=== PATIENT | female | born 1965 | race Caucasian/White ===

== ENCOUNTER → 2018-11-25 | Outpatient (CLI) | payer BC ==
[2018-11-25 08:27] LABS: ABSOLUTE EOSINOPHILS # (AUTO) 0.2 10^3/uL (0.0-0.6); ABSOLUTE LYMPHOCYTES (AUTO) 1.3 10^3/uL (0.5-4.7); ABSOLUTE MONOCYTES (AUTO) 0.3 10^3/uL (0.1-1.4); ABSOLUTE NEUT (AUTO) 2.6 10^3/uL (1.7-8.2); BASOPHILS % (AUTO) 0.6 % (0-2); EOSINOPHILS % (AUTO) 5.4 % (0-6); HEMATOCRIT 38.7 % (36.0-47.0); HEMOGLOBIN 13.4 g/dL (12.0-15.5); MEAN CORPUSCULAR HEMOGLOBIN 31.6 pg (27.0-33.4); MEAN CORPUSCULAR HGB CONC 34.6 g/dL (32.0-36.0); MEAN CORPUSCULAR VOLUME 91 fl (80-97); MONOCYTES % (AUTO) 7.8 % (3-13); PLATELET COUNT 219 10^3/uL (150-450); RED BLOOD COUNT 4.24 10^6/uL (3.72-5.28); RED CELL DISTRIBUTION WIDTH 13.7 % (11.5-14.0); SEGMENTED NEUTROPHILS % (AUTO) 58.2 % (42-78); TOTAL CELLS COUNTED % (AUTO) 100 %; WHITE BLOOD COUNT 4.5 10^3/uL (4.0-10.5)
[2018-11-25 09:12] LABS: ALANINE AMINOTRANSFERASE 32 U/L (9-52); ALBUMIN 4.2 g/dL (3.5-5.0); ALKALINE PHOSPHATASE 125 U/L (38-126); ANION GAP 8 (5-19); ASPARTATE AMINO TRANSFERASE 22 U/L (14-36); BILIRUBIN,DIRECT 0.4 mg/dL (0.0-0.4); BILIRUBIN,TOTAL 0.6 mg/dL (0.2-1.3); BLOOD UREA NITROGEN 15 mg/dL (7-20); CALCIUM 9.6 mg/dL (8.4-10.2); CARBON DIOXIDE 30 mmol/L (22-30); CHLORIDE 103 mmol/L (98-107); CHOLESTEROL 246.09 mg/dL (0-200); GLUCOSE 97 mg/dL (75-110); POTASSIUM 4.4 mmol/L (3.6-5.0); SODIUM 140.9 mmol/L (137-145); TOTAL PROTEIN 7.5 g/dL (6.3-8.2); TRIGLYCERIDES 215 mg/dL (<150)
[2018-11-25 09:23] LABS: DIRECT LDL 142 mg/dL (<100)
[2018-11-26 07:44] LABS: HEPATITIS C VIRUS AB <0.1 s/co ratio (0.0-0.9)
== END ==
LOC: OD 07:13
PROVIDERS: ATTEND Family Medicine
DX: E06.3 Autoimmune thyroiditis (principal); Z13.1 Encounter for screening for diabetes mellitus; Z86.2 Personal history of diseases of the blood and blood-forming organs and certain disorders involving the immune mechanism; Z13.220 Encounter for screening for lipoid disorders; Z11.59 Encounter for screening for other viral diseases
CPT/HCPCS: 36415; 80053; 80061; 84443; 85025; 86803; 86804

== ENCOUNTER → 2019-02-04 | Outpatient (CLI) | payer BC | LOC: OD 07:11 | PROVIDERS: ATTEND Family Medicine | DX: E06.3 Autoimmune thyroiditis (principal) | CPT/HCPCS: 36415; 84443 ==

== ENCOUNTER → 2019-03-12 | Outpatient (CLI) | payer BC ==
[2019-03-12 08:20] LABS: HEMATOCRIT 37.9 % (36.0-47.0); HEMOGLOBIN 12.9 g/dL (12.0-15.5); MEAN CORPUSCULAR HGB CONC 34.1 g/dL (32.0-36.0); MEAN CORPUSCULAR VOLUME 91 fl (80-97); PLATELET COUNT 225 10^3/uL (150-450); RED BLOOD COUNT 4.16 10^6/uL (3.72-5.28); RED CELL DISTRIBUTION WIDTH 14.6 % (11.5-14.0); WHITE BLOOD COUNT 4.9 10^3/uL (4.0-10.5)
[2019-03-12 08:45] LABS: ALANINE AMINOTRANSFERASE 16 U/L (9-52); ALBUMIN 4.2 g/dL (3.5-5.0); ALKALINE PHOSPHATASE 113 U/L (38-126); AMYLASE 57 U/L (30-110); ANION GAP 7 (5-19); ASPARTATE AMINO TRANSFERASE 18 U/L (14-36); BILIRUBIN,DIRECT 0.3 mg/dL (0.0-0.4); BILIRUBIN,TOTAL 0.6 mg/dL (0.2-1.3); BLOOD UREA NITROGEN 17 mg/dL (7-20); CALCIUM 9.3 mg/dL (8.4-10.2); CARBON DIOXIDE 28 mmol/L (22-30); CHLORIDE 105 mmol/L (98-107); GLUCOSE 94 mg/dL (75-110); LIPASE 76.7 U/L (23-300); SODIUM 139.8 mmol/L (137-145)
== END ==
LOC: OD 07:26
PROVIDERS: ATTEND Internal Medicine Gastroenterology
DX: R10.11 Right upper quadrant pain (principal)
CPT/HCPCS: 36415; 80048; 80076; 82150; 83690; 85027

== ENCOUNTER 2019-03-16 15:20 | Day surgery (SDC) | payer BC ==
[2019-03-16] MEDS ORDERED: DIPHENHYDRAMINE HCL 50 MG/ML VIAL ONE (15:49)
[2019-03-16] MEDS ORDERED: FENTANYL CITRATE INJ/PF 100 MCG/2 ML AMPUL ONE (15:50)
[2019-03-16] MEDS ORDERED: MIDAZOLAM 2 MG/2 ML INJ ONE (15:50)
[2019-03-16] MEDS ORDERED: ONDANSETRON HCL INJ/PF 4 MG/2 ML SDV ONE (15:50)
[2019-03-16] MEDS ORDERED: EPINEPHRINE INJ 1 MG/10 ML DISP.SYRIN ONE (15:51)
[2019-03-16] MEDS ORDERED: NALOXONE HCL INJ/PF 0.4 MG/1 ML SDV ONE (15:51)
[2019-03-16] MEDS ORDERED: FLUMAZENIL INJ 0.5 MG/5 ML VIAL ONE (15:51)
[2019-03-16] MEDS ORDERED: GLUCAGON,HUMAN RECOMB 1 MG INJ ONE (15:51)
[2019-03-16] MEDS ORDERED: FENTANYL CITRATE INJ/PF 100 MCG/2 ML AMPUL IV ONE ×2 (16:45→16:50)
[2019-03-16] MEDS ORDERED: MIDAZOLAM 2 MG/2 ML INJ IV ONE ×4 (16:46→16:53)
[2019-03-16] MEDS ORDERED: ONDANSETRON HCL INJ/PF 4 MG/2 ML SDV IV ONE (16:55)
[2019-03-16 18:03] VITALS: BP 138/66
--- NOTE | 2019-03-16 20:05 | OPERATIVE REPORT E ---
Operative Report NAME: SUZANNA ZAVALA : 1965 AGE: 53Y DATE OF SURGERY: 03/16/2019 ROOM: PREOPERATIVE DIAGNOSIS: COLON CANCER SCREENING AND ABDOMINAL PAIN. POSTOPERATIVE DIAGNOSIS: INTERNAL HEMORRHOIDS. OPERATION: Colonoscopy. SURGEON: VERENICE ROB M.D. ANESTHESIA: Versed 3 mg, fentanyl 100 mcg. TISSUE REMOVED OR ALTERED: None. PROCEDURE: After informed consent was obtained from the patient, conscious sedation was achieved. Colonoscope was inserted into the rectum, advanced to the cecum. The appendiceal orifice and terminal ileum were both identified. The cecal mucosa was normal. The ascending, transverse, descending, and sigmoid colon mucosa were normal. Rectum was normal except for internal hemorrhoids. She tolerated the procedure well. PLAN: 1. High fiber diet. 2. Repeat colonoscopy in 10 years. DICTATING PHYSICIAN: VERENICE ROB M.D. [id number] PHY#: [id number] ID: [id number] JOB#: [id number] ACCT: [id number] cc:DIONTE ENG M.D. VERENICE ROB M.D. >
== END 2019-03-16 18:03 | disposition home or self-care (01) ==
LOC: END 15:20
PROVIDERS: ATTEND Internal Medicine Gastroenterology
DX: K64.8 Other hemorrhoids (principal); R10.811 Right upper quadrant abdominal tenderness; R10.11 Right upper quadrant pain; E03.9 Hypothyroidism, unspecified
CPT/HCPCS: J2250; J3010; J2405; J0171; J1200; J1610; J2310; J3490

== ENCOUNTER 2019-03-23 14:58 | Day surgery (SDC) | payer BC ==
[2019-03-23] MEDS ORDERED: DIPHENHYDRAMINE HCL 50 MG/ML VIAL ONE (16:07)
[2019-03-23] MEDS ORDERED: ONDANSETRON HCL INJ/PF 4 MG/2 ML SDV ONE (16:07)
[2019-03-23] MEDS ORDERED: FLUMAZENIL INJ 0.5 MG/5 ML VIAL ONE (16:08)
[2019-03-23] MEDS ORDERED: FENTANYL CITRATE INJ/PF 100 MCG/2 ML AMPUL ONE (16:08)
[2019-03-23] MEDS ORDERED: NALOXONE HCL INJ/PF 0.4 MG/1 ML SDV ONE (16:08)
[2019-03-23] MEDS ORDERED: MIDAZOLAM 2 MG/2 ML INJ ONE (16:08)
[2019-03-23] MEDS ORDERED: EPINEPHRINE INJ 1 MG/10 ML DISP.SYRIN ONE (16:09)
[2019-03-23] MEDS ORDERED: GLUCAGON,HUMAN RECOMB 1 MG INJ ONE (16:09)
[2019-03-23] MEDS ORDERED: MIDAZOLAM 2 MG/2 ML INJ IV ONE ×2 (16:26→16:30)
[2019-03-23] MEDS ORDERED: FENTANYL CITRATE INJ/PF 100 MCG/2 ML AMPUL INJ ONE (16:27)
--- NOTE | 2019-03-23 16:38 | Operative Report ---
Operative Report DATE OF SURGERY: 03/23/19 Operative Report: Pre-op diagnosis: Right upper quadrant pain Post-op diagnosis: Grade A esophagitis Surgery: Esophagogastroduodenoscopy with biopsy Medications: Versed 3mg Fentanyl 100mcg IV push Tissue removed: Antral and gastric body biopsy for pathology Procedure: After informed consent obtained from patient, the throat was sprayed with Hurricane and conscious sedation was achieved. The upper endoscope was inserted into the esophagus under direct vision and advanced into the stomach. The duodenum was entered and examined to the second part. Endoscope was then slowly pulled out of the patient as the mucosa was examined into details. Patient tolerated procedure well. Findings Esophagus: Single erosion less than 5 mm Z-line at: 35 cm Antrum: Normal Body: Normal Fundus: Normal Duodenum first part: Normal Duodenum second part: Normal Plan: Await pathology. Omeprazole 20 mg daily OPERATION: .
[2019-03-23 17:47] VITALS: BP 157/77
== END 2019-03-23 17:31 | disposition home or self-care (01) ==
LOC: END 14:58
PROVIDERS: ATTEND Internal Medicine Gastroenterology
DX: K29.50 Unspecified chronic gastritis without bleeding (principal); K20.9 Esophagitis, unspecified; E03.9 Hypothyroidism, unspecified; Z79.899 Other long term (current) drug therapy
CPT/HCPCS: 43239; 88342 ×2; 88305 ×2; J2250; J3010; J0171; J1200; J1610; J2310; J2405; J3490

== ENCOUNTER 2019-06-14 20:04 | Emergency (ER) | payer BC ==
--- NOTE | 2019-06-14 20:17 | ER Document Report ---
ED Medical Screen (RME) - General Chief Complaint: Abdominal Pain Stated Complaint: ABDOMINAL PAIN Time Seen by Provider: 06/14/19 20:14 Mode of Arrival: Ambulatory Information source: Patient Notes: 53-year-old female presents to ED for complaint of pain in her right upper quadrant through to her back. She states she had her gallbladder removed in 2004 and has had pain ever since. She states she came in today because the pain was much worse and she is having nausea and vomiting. She states she has had acute pancreatitis in the past around 20 1220 1213. She states she drinks no more than once a month. Brian make some blood in urine I have greeted and performed a rapid initial assessment of this patient. A comprehensive ED assessment and evaluation of the patient, analysis of test results and completion of medical decision making process will be conducted by an additional ED providers. TRAVEL OUTSIDE OF THE [place] IN LAST 30 DAYS: No - Related Data Allergies/Adverse Reactions: adhesive tape Allergy (Intermediate, Verified 06/14/19 20:11) Blisters Past Medical History - Past Medical History Cardiac Medical History: Denies: Hx Coronary Artery Disease, Hx Heart Attack, Hx Hypertension Pulmonary Medical History: Denies: Hx Asthma, Hx Bronchitis, Hx COPD, Hx Pneumonia Neurological Medical History: Denies: Hx Cerebrovascular Accident, Hx Seizures Musculoskeltal Medical History: Denies Hx Arthritis Past Surgical History: Denies: Hx Hysterectomy - Immunizations Hx Diphtheria, Pertussis, Tetanus Vaccination: Yes Physical Exam - Vital signs Vitals: Temp Pulse Resp BP Pulse Ox 98.7 F 95 17 176/84 H 96 06/14/19 20:08 06/14/19 20:08 06/14/19 20:08 06/14/19 20:08 06/14/19 20:08 Course - Vital Signs Vital signs: Temp Pulse Resp BP Pulse Ox 98.7 F 95 17 176/84 H 96 06/14/19 20:08 06/14/19 20:08 06/14/19 20:08 06/14/19 20:08 06/14/19 20:08
[2019-06-14] MEDS ORDERED: ONDANSETRON 4 MG TAB.RAPDIS PO ONE (20:20)
[2019-06-14 20:59] LABS: ABSOLUTE BASOPHILS # (AUTO) 0.1 10^3/uL (0.0-0.2); ABSOLUTE EOSINOPHILS # (AUTO) 0.4 10^3/uL (0.0-0.6); ABSOLUTE LYMPHOCYTES (AUTO) 1.8 10^3/uL (0.5-4.7); ABSOLUTE MONOCYTES (AUTO) 0.9 10^3/uL (0.1-1.4); ABSOLUTE NEUT (AUTO) 9.6 10^3/uL (1.7-8.2); BASOPHILS % (AUTO) 0.6 % (0-2); EOSINOPHILS % (AUTO) 2.9 % (0-6); HEMATOCRIT 39.1 % (36.0-47.0); HEMOGLOBIN 13.3 g/dL (12.0-15.5); LYMPHOCYTES % (AUTO) 13.8 % (13-45); MEAN CORPUSCULAR HEMOGLOBIN 30.8 pg (27.0-33.4); MEAN CORPUSCULAR VOLUME 91 fl (80-97); MONOCYTES % (AUTO) 7.2 % (3-13); PLATELET COUNT 279 10^3/uL (150-450); RED BLOOD COUNT 4.31 10^6/uL (3.72-5.28); RED CELL DISTRIBUTION WIDTH 13.8 % (11.5-14.0); SEGMENTED NEUTROPHILS % (AUTO) 75.5 % (42-78); TOTAL CELLS COUNTED % (AUTO) 100 %; WHITE BLOOD COUNT 12.7 10^3/uL (4.0-10.5)
--- NOTE | 2019-06-14 21:15 | RADIOLOGY REPORT (SQ) ---
EXAM DESCRIPTION: XR ABDOMEN SUPINE AND ERECT WITH CHEST (ABD ACUTE SERIES) COMPLETED DATE/TME: 06/14/2019 20:19 CLINICAL HISTORY: 53 years, Female, abdominal pain hard stools this am COMPARISON: None. NUMBER OF VIEWS: Three TECHNIQUE: Three frontal radiographs were obtained LIMITATIONS: None. FINDINGS: Cardiac and mediastinal contours are normal. Lungs are clear. No pleural effusion or pneumothorax. Cholecystectomy clips project over the right upper quadrant. Gas and a moderate amount of stool are noted throughout the large bowel. Scattered nondilated loops of small bowel are visible. No suspicious soft tissue calcifications are appreciated. There are no suspicious osseous anomalies. No subdiaphragmatic free air. IMPRESSION: No acute abnormality within the chest. Nonobstructive bowel gas pattern. copyright 2010 [employer]- All Rights Reserved
[2019-06-14 21:16] LABS: ALBUMIN 4.4 g/dL (3.5-5.0); ALKALINE PHOSPHATASE 133 U/L (38-126); ANION GAP 10 (5-19); ASPARTATE AMINO TRANSFERASE 17 U/L (14-36); BILIRUBIN,DIRECT 0.1 mg/dL (0.0-0.4); BILIRUBIN,TOTAL 0.6 mg/dL (0.2-1.3); BLOOD UREA NITROGEN 12 mg/dL (7-20); CALCIUM 9.5 mg/dL (8.4-10.2); CARBON DIOXIDE 26 mmol/L (22-30); CHLORIDE 101 mmol/L (98-107); CREATINE KINASE 68 U/L (30-135); GLUCOSE 119 mg/dL (75-110); POTASSIUM 4.3 mmol/L (3.6-5.0); TOTAL PROTEIN 7.8 g/dL (6.3-8.2)
[2019-06-14 21:32] LABS: CREATINE KINASE MB 0.55 ng/mL (<4.55); TROPONIN I < 0.012 ng/mL
[2019-06-14 21:34] LABS: APPEARANCE,URINE CLEAR; BILIRUBIN,URINE NEGATIVE (NEGATIVE); COLOR,URINE YELLOW; GLUCOSE, URINE NEGATIVE (NEGATIVE); KETONES,URINE NEGATIVE (NEGATIVE); PROTEIN,URINE NEGATIVE (NEGATIVE); URINE SPECIFIC GRAVITY 1.017; UROBILINOGEN,URINE NEGATIVE mg/dL (<2.0)
[2019-06-14] MEDS ORDERED: DIPHENHYDRAMINE HCL 50 MG/ML VIAL IV ONE (21:34)
[2019-06-14] MEDS ORDERED: PROCHLORPERAZINE EDISYLATE INJ 10 MG/2 ML VIAL IV ONE (21:34)
--- NOTE | 2019-06-14 21:38 | ER Document Report ---
ED General - General Stated Complaint: ABDOMINAL PAIN Time Seen by Provider: 06/14/19 20:14 Mode of Arrival: Ambulatory TRAVEL OUTSIDE OF THE [place] IN LAST 30 DAYS: No - HPI Notes: 53-year-old female who presents with a history of chronic right upper quadrant pain presents with day or more of increasingly severe right upper quadrant pain. Stereotypical for multiple prior presentations over the last several years. Seems to wax and wane over months. Had extensive work-up in the past including reimaging, labs all of which been unremarkable. No fever, chills or sweats. Nausea but no vomiting. Moderate intensity severe at times, consistent with prior episodes. Most recently had an upper and lower GI which were unremarkable. No other modifying factors, no other associated symptoms, no other provocative or palliative factors. - Related Data Allergies/Adverse Reactions: adhesive tape Allergy (Intermediate, Verified 06/14/19 20:11) Blisters Past Medical History - General Information source: Patient - Social History Smoking Status: Never Smoker Chew tobacco use (# tins/day): No Frequency of alcohol use: Occasional Drug Abuse: None Family History: Reviewed & Not Pertinent Patient has suicidal ideation: No Patient has homicidal ideation: No - Medical History Notes: Includes prior cholecystectomy and intermittent chronic right upper quadrant pain - Past Medical History Cardiac Medical History: Denies: Hx Coronary Artery Disease, Hx Heart Attack, Hx Hypertension Pulmonary Medical History: Denies: Hx Asthma, Hx Bronchitis, Hx COPD, Hx Pneumonia Neurological Medical History: Denies: Hx Cerebrovascular Accident, Hx Seizures Musculoskeletal Medical History: Denies Hx Arthritis Past Surgical History: Denies: Hx Hysterectomy - Immunizations Hx Diphtheria, Pertussis, Tetanus Vaccination: Yes Review of Systems - Review of Systems Notes: Review of systems as in the history of present illness, otherwise negative x 10 systems. Physical Exam - Vital signs Vitals: Temp Pulse Resp BP Pulse Ox 98.7 F 95 17 176/84 H 96 06/14/19 20:08 06/14/19 20:08 06/14/19 20:08 06/14/19 20:08 06/14/19 20:08 - Notes Notes: General: Well developed . HEENT: Normocephalic, atraumatic. Pupils equal round reactive to light. No JVD. Chest: No trauma. Respiratory: Good air exchange, normal excursion. Cardiac: Regular rhythm. No murmurs or gallops. Abdomen: Soft, no guarding rigidity or rebound. Mild right upper quadrant tenderness. Back: No asymmetry or gross abnormality. Motor: Grossly normal power and tone. Neurologic: Alert, nonfocal. Cranial nerves II-12 are intact. Sensation intact. Vascular: Well perfused. Normal peripheral pulses. Skin: No petechiae or purpura. Course - Re-evaluation Re-evalutation: 06/14/19 21:37 Note patient seen by provider in triage prior to my evaluation, multiple labs and imaging studies were ordered and partially available at the time of evaluation. 53-year-old female with acute on chronic cyclical chronic pain. Relatively benign exam no high risk features. Suspect this is a an exacerbation of her underlying chronic recurrent pain. Available labs show minimal leukocytosis, normal LFTs and lipase. Acute abdominal series grossly unremarkable. This point we will treat with IV prochlorperazine and diphenhydramine, fluids, she will exams and reassess. 06/14/19 22:10 Patient has had marked improvement and has a benign examination after administration of Compazine and diphenhydramine. Will discharge home with prescription for Compazine, close outpatient follow-up. - Vital Signs Vital signs: Temp Pulse Resp BP Pulse Ox 98.7 F 95 17 176/84 H 96 06/14/19 20:08 06/14/19 20:08 06/14/19 20:08 06/14/19 20:08 06/14/19 20:08 - Laboratory Result Diagrams: 06/14/19 18:35 06/14/19 18:35 Laboratory results interpreted by me: 06/14/19 06/14/19 06/14/19 18:35 18:35 18:35 WBC 12.7 H Absolute Neuts (auto) 9.6 H Sodium 136.9 L Glucose 119 H Alkaline Phosphatase 133 H Leukocyte Esterase Rfl TRACE H Discharge - Discharge Clinical Impression: Abdominal pain Qualifiers: Abdominal location: unspecified location Qualified Code(s): R10.9 - Unspecified abdominal pain Condition: Stable Disposition: HOME, SELF-CARE Instructions: Abdominal Pain ([facility]) Additional Instructions: See your regular doctor over the next 24 to 48 hours Prescriptions: Prochlorperazine Maleate [Compazine 10 mg Tablet] 10 mg PO ASDIR PRN #10 tablet PRN Reason:
[2019-06-14 22:34] VITALS: BP 143/69
== END 2019-06-14 22:40 | disposition home or self-care (01) ==
LOC: ER 20:04
DX: R10.11 Right upper quadrant pain (principal); G89.29 Other chronic pain; R10.811 Right upper quadrant abdominal tenderness; D72.829 Elevated white blood cell count, unspecified; Z90.49 Acquired absence of other specified parts of digestive tract; Z91.048 Other nonmedicinal substance allergy status
CPT/HCPCS: 36415; 87086; 82553; 82550; 83690; 85025; 80053; 81001; 84484; 74022; J1200; S0119; J0780; 96374; 96375; 99284

== ENCOUNTER → 2019-11-26 | Outpatient (CLI) | payer BC ==
--- NOTE | 2019-11-26 12:39 | RADIOLOGY REPORT (SQ) ---
EXAM DESCRIPTION: LUMBAR SPINE 2 VIEWS IMAGES COMPLETED DATE/TIME: 11/26/2019 12:28 pm REASON FOR STUDY: LEFT HIP PAIN;LOW BACK PAIN M54.5 LOW BACK PAIN M25.552 PAIN IN LEFT HIP COMPARISON: None. NUMBER OF VIEWS: Two views. TECHNIQUE: AP and lateral radiographic images acquired of the lumbar spine. LIMITATIONS: None. FINDINGS: MINERALIZATION: Normal. SEGMENTATION: 5 [id number] lumbar vertebral bodies. ALIGNMENT: Straightening of the normal lumbar lordosis. VERTEBRAE: Maintained height. No fracture or worrisome bone lesion. DISCS: Mild endplate change with relatively well-maintained disc spaces. POSTERIOR ELEMENTS: Pedicles and facets are intact. No pars defect or posterior arch defects. HARDWARE: None in the spine. PARASPINAL SOFT TISSUES: Normal. PELVIS: Intact as visualized. No fractures or worrisome bone lesions. SI joints intact. OTHER: No other significant finding. IMPRESSION: 1. No evidence of acute bony abnormality of the lumbar spine. 2. Minimal degenerative change. TECHNICAL DOCUMENTATION: JOB ID: [id number] 2010 [employer]- All Rights Reserved Reading location - IP/workstation name: [email or web address]
--- NOTE | 2019-11-26 12:41 | RADIOLOGY REPORT (SQ) ---
EXAM DESCRIPTION: HIP LEFT AP/LATERAL IMAGES COMPLETED DATE/TIME: 11/26/2019 12:28 pm REASON FOR STUDY: LEFT HIP PAIN;LOW BACK PAIN M54.5 LOW BACK PAIN M25.552 PAIN IN LEFT HIP COMPARISON: None. NUMBER OF VIEWS: Two views. TECHNIQUE: AP pelvis and additional frog-leg view of the left hip. LIMITATIONS: None. FINDINGS: MINERALIZATION: Normal. LEFT HIP: No fracture or dislocation. No worrisome bone lesions. RIGHT HIP: No fracture or dislocation. No worrisome bone lesions. PUBIS AND ISCHIUM: No fracture. PELVIS: No fracture. SACRUM: No fracture or dislocation. No worrisome bone lesions. LOWER LUMBAR SPINE: No fracture or dislocation. No worrisome bone lesions. No significant disc disea se. SOFT TISSUES: No findings. OTHER: No other significant finding. IMPRESSION: NEGATIVE STUDY OF THE LEFT HIP AND PELVIS. NO RADIOGRAPHIC EVIDENCE OF ACUTE INJURY. TECHNICAL DOCUMENTATION: JOB ID: [id number] 2010 [employer]- All Rights Reserved Reading location - IP/workstation name: [email or web address]
== END ==
LOC: OD 12:10
PROVIDERS: ATTEND Family Medicine
DX: M25.552 Pain in left hip (principal); M54.5 Low back pain
CPT/HCPCS: 72100

== ENCOUNTER → 2020-03-10 | Outpatient (CLI) | payer BC ==
[2020-03-10 08:32] LABS: ABSOLUTE EOSINOPHILS # (AUTO) 0.2 10^3/uL (0.0-0.6); ABSOLUTE LYMPHOCYTES (AUTO) 1.3 10^3/uL (0.5-4.7); ABSOLUTE MONOCYTES (AUTO) 0.4 10^3/uL (0.1-1.4); ABSOLUTE NEUT (AUTO) 2.4 10^3/uL (1.7-8.2); BASOPHILS % (AUTO) 0.7 % (0-2); EOSINOPHILS % (AUTO) 5.2 % (0-6); HEMATOCRIT 40.1 % (36.0-47.0); HEMOGLOBIN 13.4 g/dL (12.0-15.5); MEAN CORPUSCULAR HEMOGLOBIN 30.5 pg (27.0-33.4); MEAN CORPUSCULAR HGB CONC 33.5 g/dL (32.0-36.0); MEAN CORPUSCULAR VOLUME 91 fl (80-97); MONOCYTES % (AUTO) 9.4 % (3-13); PLATELET COUNT 210 10^3/uL (150-450); RED CELL DISTRIBUTION WIDTH 14.2 % (11.5-14.0); SEGMENTED NEUTROPHILS % (AUTO) 54.7 % (42-78); TOTAL CELLS COUNTED % (AUTO) 100 %; WHITE BLOOD COUNT 4.4 10^3/uL (4.0-10.5)
[2020-03-10 08:57] LABS: ALBUMIN 4.5 g/dL (3.5-5.0); ALKALINE PHOSPHATASE 101 U/L (38-126); ANION GAP 6 (5-19); ASPARTATE AMINO TRANSFERASE 26 U/L (14-36); BILIRUBIN,TOTAL 0.8 mg/dL (0.2-1.3); BLOOD UREA NITROGEN 17 mg/dL (7-20); CALCIUM 9.6 mg/dL (8.4-10.2); CARBON DIOXIDE 29 mmol/L (22-30); CHLORIDE 104 mmol/L (98-107); CHOLESTEROL 218.72 mg/dL (0-200); GLUCOSE 104 mg/dL (75-110); POTASSIUM 4.9 mmol/L (3.6-5.0); TOTAL PROTEIN 7.8 g/dL (6.3-8.2); TRIGLYCERIDES 180 mg/dL (<150)
[2020-03-10 09:08] LABS: DIRECT LDL 122 mg/dL (<100)
== END ==
LOC: OD 07:12
PROVIDERS: ATTEND Family Medicine
DX: E78.5 Hyperlipidemia, unspecified (principal); E06.3 Autoimmune thyroiditis; Z86.2 Personal history of diseases of the blood and blood-forming organs and certain disorders involving the immune mechanism
CPT/HCPCS: 36415; 80053; 80061; 84443; 85025

== ENCOUNTER 2020-04-13 12:04 | Emergency (ER) | payer OTHER, BC ==
[2020-04-13] MEDS ORDERED: DIPH/PERTUSS(ACELL)/TETANUS VAC/PF 0.5 ML SYR (>=10YO) IM ONE (13:27)
--- NOTE | 2020-04-13 13:28 | ER Document Report ---
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 Patient states that she had no loss of consciousness but her front teeth are loose her nose bled and she is having jaw pain. She has skinned up her nose. She also complains of right hand pain and left ankle pain. Patient is on no anticoagulation therapy. She had no loss of consciousness. She did not hit her head only the face hit the pavement. She denies any other medical problems. Patient is a well-nourished well-developed 54-year-old female who is in no apparent distress on physical exam but does appear very uncomfortable. Cardiac: Patient is a regular rate and rhythm no murmurs auscultated. Lungs: Bilateral breath sounds breath sounds increased clear to auscultation. HEENT. Examination of patient's face shows multiple abrasions on the nose and bridge of nose. There is some mild bleeding from the left nare. Swelling to the upper lip. Patient has some trismus noted. Tenderness to palpation across the mandible. Next Extremities: Examination patient's her concern is her right hand that shows mild tenderness along the fifth metacarpal and wrist area. There is no deformity noted. Patient has good cap refill in nailbeds of the finger. Lower extremities: Examination patient's left ankle shows mild swelling to the left lateral malleoli area. Tenderness to palpation in the same area and along the dorsum of the foot. I have greeted and performed a rapid initial assessment of this patient. A comprehensive ED assessment and evaluation of the patient, analysis of test results and completion of the medical decision making process will be conducted by additional ED providers. Dictation of this chart was performed using voice recognition software; therefore, there may be some unintended grammatical errors. TRAVEL OUTSIDE OF THE [place] IN LAST 30 DAYS: No - Related Data Allergies/Adverse Reactions: adhesive tape Allergy (Intermediate, Verified 06/14/19 20:11) Blisters Home Medications: Levothyroxine, Paroxetine, Atorvastatin, Omeprazole Past Medical History - Past Medical History Cardiac Medical History: Reports: Hx Hypertension Denies: Hx Coronary Artery Disease, Hx Heart Attack Pulmonary Medical History: Denies: Hx Asthma, Hx Bronchitis, Hx COPD, Hx Pneumonia Neurological Medical History: Denies: Hx Cerebrovascular Accident, Hx Seizures GI Medical History: Reports: Hx Gastroesophageal Reflux Disease Musculoskeltal Medical History: Denies Hx Arthritis Past Surgical History: Denies: Hx Hysterectomy - Immunizations Hx Diphtheria, Pertussis, Tetanus Vaccination: Yes Physical Exam - Vital signs Vitals: Temp Pulse Resp BP Pulse Ox 98.3 F 79 20 180/96 H 100 04/13/20 12:16 04/13/20 12:16 04/13/20 12:16 04/13/20 12:16 04/13/20 12:16 Course - Vital Signs Vital signs: Temp Pulse Resp BP Pulse Ox 98.3 F 79 20 180/96 H 100 04/13/20 12:16 04/13/20 12:16 04/13/20 12:16 04/13/20 12:16 04/13/20 12:16 Doctor's Discharge - Discharge Referrals: LAINEY ENG MD [Primary Care Provider] - Follow up as needed
--- NOTE | 2020-04-13 13:59 | RADIOLOGY REPORT (SQ) ---
EXAM DESCRIPTION: CT FACIAL AREA WITHOUT IMAGES COMPLETED DATE/TIME: 04/13/2020 1:49 pm REASON FOR STUDY: fall on face COMPARISON: None. TECHNIQUE: Noncontrasted images through the facial bones and orbits windowed for bone and soft tissu e. Additional coronal and sagittal reconstructed images reviewed. All images stored on PACS. All CT scanners at this facility use dose modulation, iterative reconstruction, and/or weight based d osing when appropriate to reduce radiation dose to as low as reasonably achievable (ALARA). [facility]: Dose Right [facility]: CareDose [facility]: Dose Right [facility]: Teradose 4D [facility]: [employer] RADIATION DOSE: mGy. LIMITATIONS: Jewelry artifact. FINDINGS: FACIAL BONES: No fracture or bone lesion. ORBITS: Intact. No fracture. Symmetric intact globes and retroorbital soft tissues. PARANASAL SINUSES: Clear. SOFT TISSUES: No mass or edema. INFERIOR BRAIN: Limited view. No acute findings. OTHER: No other significant finding. IMPRESSION: NO ACUTE FINDINGS. TECHNICAL DOCUMENTATION: JOB ID: [id number] Quality ID # [id number]: Final reports with documentation of one or more dose reduction techniques (e.g., Au tomated exposure control, adjustment of the mA and/or kV according to patient size, use of iterative reconstruction technique) 2010 [employer]- All Rights Reserved Reading location - IP/workstation name: [email or web address]
--- NOTE | 2020-04-13 14:06 | RADIOLOGY REPORT (SQ) ---
EXAM DESCRIPTION: ANKLE LEFT COMPLETE IMAGES COMPLETED DATE/TIME: 04/13/2020 1:56 pm REASON FOR STUDY: fall COMPARISON: None. NUMBER OF VIEWS: Three views. TECHNIQUE: AP, lateral, and oblique radiographic images acquired of the left ankle. LIMITATIONS: None. FINDINGS: MINERALIZATION: Normal. BONES: No acute fracture or dislocation. No worrisome bone lesions. Incidental note is made of calc aneal enthesopathy. JOINTS: No effusions. SOFT TISSUES: No soft tissue swelling. No foreign body. OTHER: No other significant finding. IMPRESSION: No evidence of acute osseous injury. TECHNICAL DOCUMENTATION: JOB ID: [id number] 2010 [employer]- All Rights Reserved Reading location - IP/workstation name: [email or web address]
--- NOTE | 2020-04-13 14:07 | RADIOLOGY REPORT (SQ) ---
EXAM DESCRIPTION: HAND RIGHT 3 VIEWS IMAGES COMPLETED DATE/TIME: 04/13/2020 1:56 pm REASON FOR STUDY: fall COMPARISON: None. EXAM PARAMETERS: NUMBER OF VIEWS: Three views. TECHNIQUE: AP, lateral and oblique radiographic images acquired of the right hand. LIMITATIONS: None. FINDINGS: MINERALIZATION: Normal. BONES: No acute fracture or dislocation. No worrisome bone lesions. JOINTS: No effusions. SOFT TISSUES: No soft tissue swelling. No foreign body. OTHER: No other significant finding. IMPRESSION: No evidence of acute osseous injury. TECHNICAL DOCUMENTATION: JOB ID: [id number] 2010 [employer]- All Rights Reserved Reading location - IP/workstation name: [email or web address]
--- NOTE | 2020-04-13 14:08 | RADIOLOGY REPORT (SQ) ---
EXAM DESCRIPTION: FOOT LEFT COMPLETE IMAGES COMPLETED DATE/TIME: 04/13/2020 1:56 pm REASON FOR STUDY: fall COMPARISON: None. NUMBER OF VIEWS: Three views. TECHNIQUE: AP, lateral and oblique radiographic images acquired of the left foot. LIMITATIONS: None. FINDINGS: MINERALIZATION: Normal. BONES: No acute fracture or dislocation. No worrisome bone lesions. Incidental note is made of calc aneal enthesopathy. JOINTS: No effusions. SOFT TISSUES: No soft tissue swelling. No foreign body. OTHER: No other significant finding. IMPRESSION: No evidence of acute osseous injury. TECHNICAL DOCUMENTATION: JOB ID: [id number] 2010 [employer]- All Rights Reserved Reading location - IP/workstation name: [email or web address]
[2020-04-13] MEDS ORDERED: OXYCODONE-ACETAMINOPHEN 5-325 MG TABLET PO ONE (15:31)
--- NOTE | 2020-04-13 15:58 | ER Document Report ---
ED General - General Chief Complaint: Facial Injury Stated Complaint: FALL/LIP/LEG PAIN Time Seen by Provider: 04/13/20 13:19 Primary Care Provider: LAINEY ENG MD [Primary Care Provider] - Follow up as needed Mode of Arrival: Ambulatory TRAVEL OUTSIDE OF THE [place] IN LAST 30 DAYS: No - HPI Notes: Patient is a 54-year-old female who presents to the emergency department for evaluation. She was walking outside, believes she must not of picked up her foot highly enough, twisted her ankle, fell to the ground and "face planted." She complains of pain in her nose and upper lip, her right wrist, her left ankle. She denies any neck or back pain. She did not lose consciousness. She has no nausea or vomiting, no visual changes. She is unsure of her last tetanus shot. - Related Data Allergies/Adverse Reactions: adhesive tape Allergy (Intermediate, Verified 06/14/19 20:11) Blisters Home Medications: Levothyroxine, Paroxetine, Atorvastatin, Omeprazole Past Medical History - General Information source: Patient - Social History Smoking Status: Never Smoker Family History: Reviewed & Not Pertinent - Past Medical History Cardiac Medical History: Reports: Hx Hypertension Denies: Hx Coronary Artery Disease, Hx Heart Attack Pulmonary Medical History: Denies: Hx Asthma, Hx Bronchitis, Hx COPD, Hx Pneumonia Neurological Medical History: Denies: Hx Cerebrovascular Accident, Hx Seizures GI Medical History: Reports: Hx Gastroesophageal Reflux Disease Musculoskeletal Medical History: Denies Hx Arthritis Past Surgical History: Reports: Hx Appendectomy, Hx Cholecystectomy, Other - Septoplasty. Denies: Hx Hysterectomy - Immunizations Hx Diphtheria, Pertussis, Tetanus Vaccination: Yes Review of Systems - Review of Systems Constitutional: No symptoms reported EENT: No symptoms reported Cardiovascular: No symptoms reported Respiratory: No symptoms reported Gastrointestinal: No symptoms reported Genitourinary: No symptoms reported Musculoskeletal: See HPI Skin: See HPI Neurological/Psychological: No symptoms reported Physical Exam - Vital signs Vitals: Temp Pulse Resp BP Pulse Ox 98.3 F 79 20 180/96 H 100 04/13/20 12:16 04/13/20 12:16 04/13/20 12:16 04/13/20 12:16 04/13/20 12:16 - Notes Notes: Vital signs reviewed, please refer to chart. Head is normocephalic. Pupils equal round, reactive to light. Nares are patent without septal hematoma. She does have an abrasion over the distal tip of the nose, with some tenderness. She has an abrasion on the skin above her upper lip. Superficial laceration noted to the inside of the upper lip. No facial bone tenderness, no orbital stepoff. Oral mucosa is moist. Mild trauma noted to left maxillary incisor. Uvula is midline. Examination of the spine yields no midline tenderness or step-off. No paraspinal musculature tenderness is appreciated. Heart is regular rate and rhythm. Lungs are clear to auscultation bilaterally. Chest wall excursion is equal, chest is nontender. Abdomen is soft, nontender, normoactive bowel sounds throughout. Extremities without cyanosis, clubbing. Posterior calves are nontender. Peripheral pulses are equal. Skin is warm and dry. Pat ient is awake, alert, oriented x3. No gross facial asymmetry. Moves all 4 extremity spontaneously. Examination of the right upper extremity yields no obvious deformity. Full range of motion at the shoulder elbow, thumb, fingers. Active range of motion of the wrist is limited. She has minimal tenderness to palpation over the distal ulna. No distal radius tenderness, no anatomical snuffbox tenderness. Radial pulse 2+, capillary fill is brisk. Examination of the left ankle yields a moderate amount of edema with ecchymosis over the lateral malleolus. She has no fibular head tenderness, no fifth metatarsal head tenderness. Neurovascularly intact distally. Course - Re-evaluation Re-evalutation: 04/13/20 16:05 Patient presents to the emergency department for evaluation after a fall. She had CT scan of the face, plain films as ordered through triage. She had her tetanus updated. I did treat her with here with Percocet. No clear fracture was identified. She is told she needs to follow-up with dentist in regards to her tooth, primary care in regards to other injuries. Otherwise ice, rest, elevation of her ankle. Keep wound clean. Return to the ED with worsening or new concerning symptoms of any sort. - Vital Signs Vital signs: Temp Pulse Resp BP Pulse Ox 98.3 F 79 20 180/96 H 100 04/13/20 12:16 04/13/20 12:16 04/13/20 12:16 04/13/20 12:16 04/13/20 12:16 Discharge - Discharge Clinical Impression: Left ankle sprain Qualifiers: Encounter type: initial encounter Involved ligament of ankle: unspecified ligament Qualified Code(s): S93.402A - Sprain of unspecified ligament of left ankle, initial encounter Contusion of nose Qualifiers: Encounter type: initial encounter Qualified Code(s): S00.33XA - Contusion of nose, initial encounter Facial abrasion Qualifiers: Encounter type: initial encounter Qualified Code(s): S00.81XA - Abrasion of other part of head, initial encounter Right wrist sprain Qualifiers: Encounter type: initial encounter Qualified Code(s): S63.501A - Unspecified sprain of right wrist, initial encounter Fall Qualifiers: Encounter type: initial encounter Qualified Code(s): W19.XXXA - Unspecified fall, initial encounter Dental injury Qualifiers: Encounter type: initial encounter Qualified Code(s): S09.93XA - Unspecified injury of face, initial encounter Condition: Stable Disposition: HOME, SELF-CARE Instructions: Abrasions of the Face ([facility]), Ice Packs ([facility]), Oral Narcotic Medication ([facility]), Sprained Ankle ([facility]) Additional Instructions: Keep wound clean with soap and water. Ice and elevate sprained ankle. Take medications as prescribed, preferably with food. Follow-up with your primary care provider next week. You also need to see your dentist for evaluation of your tooth. Return to the emergency department with worsening or new concerning symptoms of any sort. Prescriptions: Oxycodone HCl/Acetaminophen [Percocet 5-325 mg Tablet] 1 tab PO Q6HP PRN #12 tablet PRN Reason: Meloxicam [Mobic 7.5 Mg Tablet] 7.5 mg PO BID #20 tablet Forms: Return to Work Referrals: LAINEY ENG MD [Primary Care Provider] - Follow up as needed
[2020-04-13 16:26] VITALS: BP 156/92
== END 2020-04-13 16:19 | disposition home or self-care (01) ==
LOC: ER 12:04
DX: S93.402A Sprain of unspecified ligament of left ankle, initial encounter (principal); S09.93XA Unspecified injury of face, initial encounter; S00.33XA Contusion of nose, initial encounter; S00.81XA Abrasion of other part of head, initial encounter; S63.501A Unspecified sprain of right wrist, initial encounter; R51 Headache; J34.89 Other specified disorders of nose and nasal sinuses; M25.531 Pain in right wrist; M25.572 Pain in left ankle and joints of left foot; X50.1XXA Overexertion from prolonged static or awkward postures, initial encounter; Z88.8 Allergy status to other drugs, medicaments and biological substances; I10 Essential (primary) hypertension
CPT/HCPCS: 70486; 90471; 90715; 99284

== ENCOUNTER → 2020-06-06 | Outpatient (CLI) | payer BC ==
[2020-06-06 09:41] LABS: ANION GAP 10 (5-19); BLOOD UREA NITROGEN 15 mg/dL (7-20); CALCIUM 9.4 mg/dL (8.4-10.2); CARBON DIOXIDE 27 mmol/L (22-30); CHLORIDE 103 mmol/L (98-107); GLUCOSE 100 mg/dL (75-110); POTASSIUM 4.4 mmol/L (3.6-5.0)
== END ==
LOC: OD 07:45
PROVIDERS: ATTEND Family Medicine
DX: N28.9 Disorder of kidney and ureter, unspecified (principal)
CPT/HCPCS: 36415; 80048

== ENCOUNTER → 2020-08-16 | Outpatient (CLI) | payer BC ==
[~2020-08-16] MED LIST: COVID-19 VACCINE (PFIZER)/PF 30 MCG/0.3 ML VIAL IM ONE; EPINEPHRINE INJ/PF 1 MG/1 ML AMPULE IM PRN
== END ==
LOC: EMPHEALTH 07:30
PROVIDERS: ATTEND Internal Medicine
DX: Z23 Encounter for immunization (principal)
CPT/HCPCS: 91300

== ENCOUNTER → 2020-09-06 | Outpatient (CLI) | payer BC | LOC: EMPHEALTH 07:32 | PROVIDERS: ATTEND Internal Medicine | DX: Z23 Encounter for immunization (principal) | CPT/HCPCS: 91300 ==

== ENCOUNTER → 2020-09-14 | Outpatient (CLI) | payer BC ==
--- OUTSIDE RECORDS SUMMARY | 2020-09-14 07:26 | XMS REPORT ---
:1965 [facility] [address] [place] [address] Care Team Providers Name Role Phone CHANCE NEGRETE Primary Care Physician Unavailable KIMO LA Attending Clinician Unavailable JOJO MATUTE Attending Clinician Unavailable DONA ROMO Attending Clinician Unavailable GREGORIO NEGRETE Attending Clinician Unavailable TANI CARDENAS Attending Clinician Unavailable Fortino KUMAR Attending Clinician Unavailable Kashif SINCLAIR Attending Clinician Unavailable MORELIA Attending Clinician Unavailable Allergies, Adverse Reactions, Alerts Allergy Allergy Status Severity Reaction(s) Onset Inactive Treating C omstefano Name Type Date Date Clinician Morphine Propensity Inactive Pt just to adverse 5-04 don't reactions 00:00: like 00 Morphine ! ! Adhesive Propensity Inactive Low Rash (HUGGINS RGICAL Tape-Silic to adverse 5-03 TA PE) ones reactions 00:00: 00 Latex Propensity Inactive (LAT EX) to adverse 5-03 reactions 00:00: 00 Adhesive Propensity Active Low Rash 0 to adverse 6-25 reactions 00:00: 00 Adhesive Allergy to Active Tape substance Medications Ordered Filled Start Stop Current Ordering Indication Dosage Frequency Signature Comments Components Medication Medication Date Date Medication? Clinician (SIG) Name Name hydroCHLORO 2016-08 No TAKE ONE TAKE ONE thiazide 1-15 CAPSULE BY CAPSUL E (MICROZIDE) 00:00: MOUTH BY MOUT H 12.5 mg 00 EVERY DAY EVERY DA Y capsule scopolamine 2016-08 2018- No 1.5MG Place [address] 1 (TRANSDERM- 0-31 10-31 patch (1.5 pat ch SCOP) 1 mg 00:00: 23:59 mg total) (1.5 mg over 3 days 00 :00 on the total) on skin every the skin third day. every third day. HYDROmorpho No .5MG Hydromorph ne (PF) 12-25 one 1 (DILAUDID) 23:03: Mg/Ml injection 17 Injection 0.5 mg Syringe omeprazole 2016- No 20MG Take 1 Take 1 (PRILOSEC) 12-25- capsule capsule 20 MG 00:00: 23:59 (20 mg (20 mg capsule 00 :00 total) by total) b y mouth mouth daily. daily. omeprazole 2016- No 20MG Take 1 Take 1 (PRILOSEC) 12-25 capsule capsule 20 MG 00:00: 23:59 (20 mg (20 mg capsule 00 :00 total) by total) b y mouth mouth daily. daily. omeprazole 2016- No 20MG Take 1 Take 1 (PRILOSEC) 12-25 capsule capsule 20 MG 00:00: 23:59 (20 mg (20 mg capsule 00 :00 total) by total) b y mouth mouth daily. daily. omeprazole No 20MG Take 1 Take 1 (PRILOSEC) 12-25 capsule capsule 20 MG 00:00: 23:59 (20 mg (20 mg capsule 00 :00 total) by total) b y mouth mouth daily. daily. diclofenac 2016- No 75mg Take 75 mg Spenser e 75 (VOLTAREN) 2-17 02-17 by mouth mg by 75 MG EC 11:13: 00:00 Two (2) mouth Tw o tablet 46 :00 times a (2) times day. a day. ESTRADIOL No Place on Place on (ESTROGEL 2-17 the skin. the sk in. TD) 10:50: 08 multivitami 2016-0 No 1{capsu Take 1 Take 1 n capsule 2-17 le} capsule by capsu le 10:50: mouth by mouth 08 daily. daily. ESTRADIOL [address] on (ESTROGEL 2-17 the skin. the sk in. TD) 10:50: 08 multivitami 2016-0 No 1{capsu Take 1 Take 1 n capsule 2-17 le} capsule by capsu le 10:50: mouth by mouth 08 daily. daily. ESTRADIOL [address] on (ESTROGEL 2-17 the skin. the sk in. TD) 10:50: 08 multivitami 2017-0 No 1{capsu Take 1 Take 1 n capsule 2-17 le} capsule by capsu le 10:50: mouth by mouth 08 daily. daily. ESTRADIOL 2017-[address] on (ESTROGEL 2-17 the skin. the sk in. TD) 10:50: 08 multivitami 2017-0 No 1{capsu Take 1 Take 1 n capsule 2-17 le} capsule by capsu le 10:50: mouth by mouth 08 daily. daily. ESTRADIOL 2017-[address] on (ESTROGEL 2-17 the skin. the sk in. TD) 10:50: 08 hydroCHLORO 2017-0 2018- No 12.5MG Take 1 Take 1 thiazide 2-17 02-17 capsule capsule (MICROZIDE) 00:00: 23:59 (12.5 mg (12. 5 mg 12.5 mg 00 :00 total) by total) b y capsule mouth mouth daily. daily. hydroCHLORO 2016-0 2018- No 12.5MG Take 1 Take 1 thiazide 2-17 02-17 capsule capsule (MICROZIDE) 00:00: 23:59 (12.5 mg (12. 5 mg 12.5 mg 00 :00 total) by total) b y capsule mouth mouth daily. daily. hydroCHLORO 2016-0 2018- No 12.5MG Take 1 Take 1 thiazide 2-17 02-17 capsule capsule (MICROZIDE) 00:00: 23:59 (12.5 mg (12. 5 mg 12.5 mg 00 :00 total) by total) b y capsule mouth mouth daily. daily. hydroCHLORO 2016-0 2018- No 12.5MG Take 1 Take 1 thiazide 2-17 02-17 capsule capsule (MICROZIDE) 00:00: 23:59 (12.5 mg (12. 5 mg 12.5 mg 00 :00 total) by total) b y capsule mouth mouth daily. daily. naproxen-di 2015- No 1{tbl} Take 1 Take 1 phenhydrami 0-19 tablet by tabl et by ne (ALEVE 13:59: mouth mouth PM) 220-25 50 nightly. nightl y. mg Tab naproxen-di 2015-08 No 1{tbl} Take 1 Take 1 phenhydrami 0-19 tablet by tabl et by ne (ALEVE 13:59: mouth mouth PM) 220-25 50 nightly. nightl y. mg Tab naproxen-di 2015-08 No 1{tbl} Take 1 Take 1 phenhydrami 0-19 tablet by tabl et by ne (ALEVE 13:59: mouth mouth PM) 220-25 50 nightly. nightl y. mg Tab naproxen-di 2015-08 No 1{tbl} Take 1 Take 1 phenhydrami 0-19 tablet by tabl et by ne (ALEVE 13:59: mouth mouth PM) 220-25 50 nightly. nightl y. mg Tab ergocalcife 2017- No [id number] Take 1 Take 1 rol 9- capsule capsule (DRISDOL) 00:00: 23:59 (50,000 (50,000 50,000 unit 00 :00 Units Units capsule total) by total) b y mouth once mouth a week. once a week. ergocalcife 2016- No [id number] Take 1 Take 1 rol 9-21 05- capsule capsule (DRISDOL) 00:00: 23:59 (50,000 (50,000 50,000 unit 00 :00 Units Units capsule total) by total) b y mouth once mouth a week. once a week. ergocalcife 2016- No [id number] Take 1 Take 1 rol 9-21 05- capsule capsule (DRISDOL) 00:00: 23:59 (50,000 (50,000 50,000 unit 00 :00 Units Units capsule total) by total) b y mouth once mouth a week. once a week. ergocalcife 2016- No [id number] Take 1 Take 1 rol 9- capsule capsule (DRISDOL) 00:00: 23:59 (50,000 (50,000 50,000 unit 00 :00 Units Units capsule total) by total) b y mouth once mouth a week. once a week. rizatriptan No 10MG Take 1 Take 1 (MAXALT) 10 9-19 tablet (10 tab let MG tablet 00:00: mg total) (10 m g 00 by mouth total) by once as mouth needed for once as migraine. needed for migraine. rizatriptan No Other 10mg Take 1 Take 1 (MAXALT) 10 -19 migraine tablet (10 tablet MG tablet 00:00: without mg total) (10 mg 00 status by mouth total) by migrainosus once as mouth , not needed for once as intractable migraine. need ed for migraine. rizatriptan No 10MG Take 1 Take 1 (MAXALT) 10 -19 tablet (10 tab let MG tablet 00:00: mg total) (10 m g 00 by mouth total) by once as mouth needed for once as migraine. needed for migraine. rizatriptan No 10MG Take 1 Take 1 (MAXALT) 10 -19 tablet (10 tab let MG tablet 00:00: mg total) (10 m g 00 by mouth total) by once as mouth needed for once as migraine. needed for migraine. metroNIDAZO 2017- No Apply Apply LE 05-13 topically topically (METROGEL) 00:00: 23:59 daily. daily. 1 % gel 00 :00 metroNIDAZO 2016- No Rosacea Apply Apply LE 05-13 topically topically (METROGEL) 00:00: 23:59 daily. daily. 1 % gel 00 :00 metroNIDAZO 2016- No Apply Apply LE 05-13 topically topically (METROGEL) 00:00: 23:59 daily. daily. 1 % gel 00 :00 metroNIDAZO 2016- No Apply Apply LE 05-13 topically topically (METROGEL) 00:00: 23:59 daily. daily. 1 % gel 00 :00 venlafaxine 2017- No Menopausal 37.5mg Take 1 Take 1 (EFFEXOR 05-13 syndrome capsule capsul e XR) 37.5 MG 00:00: 00:00 (hot (37.5 mg (37. 5 mg 24 hr 00 :00 flashes) total) by total) by capsule mouth mouth daily. daily. thyroid, No Take 1 Take 1 porcine 7-21 tablet by tablet b y (ARMOUR 00:00: mouth mouth THYROID) 60 00 daily. daily. mg Tab thyroid, Yes Take 1 Take 1 porcine 7-21 tablet by tablet b y (ARMOUR 00:00: mouth mouth THYROID) 60 00 daily. daily. mg Tab thyroid, No Take 1 Take 1 porcine 7-21 tablet by tablet b y ([place]AIN 00:00: mouth mouth THYROID) 60 00 daily. daily. mg Tab thyroid, No Take 1 Take 1 porcine 7-21 tablet by tablet b y ([place]AIN 00:00: mouth mouth THYROID) 60 00 daily. daily. mg Tab ergocalcife 2016- No [id number] Take 1 Take 1 rol 11-23 capsule capsule (DRISDOL) 00:00: 23:59 (50,000 (50,000 50,000 unit 00 :00 Units Units capsule total) by total) b y mouth once mouth a week. once a week. ergocalcife 2015- No [id number] Take 1 Take 1 rol 11-23 capsule capsule (DRISDOL) 00:00: 00:00 (50,000 (50,000 50,000 unit 00 :00 Units Units capsule total) by total) b y mouth once mouth a week. once a week. metroNIDAZO 2014-08- No Apply Apply LE 10-15 12-20 topically topically (METROGEL) 00:00: 23:59 daily. daily. 1 % gel 00 :00 metroNIDAZO 2014-08- No Rosacea Apply Apply LE 10-15-19 topically topically (METROGEL) 00:00: 00:00 daily. daily. 1 % gel 00 :00 nitroglycer 2014-08- No .4MG Place [address] 1 in 09-15 tablet tablet (NITROSTAT) 00:00: 23:59 (0.4 mg (0.4 mg 0.4 MG SL 00 :00 total) total) tablet under the under the tongue tongue every five every (5) five (5) minutes as minutes needed for as needed chest for chest pain. pain. nitroglycer 2014-08- No .4mg Place [address] 1 in 09-15 tablet tablet (NITROSTAT) 00:00: 23:59 (0.4 mg (0.4 mg 0.4 MG SL 00 :00 total) total) tablet under the under the tongue tongue every five every (5) five (5) minutes as minutes needed for as needed chest for chest pain. pain. thyroid, No 60MG Take 1 Take 1 porcine 6-19 tablet (60 tablet (ARMOUR 00:00: mg total) (60 mg THYROID) 60 00 by mouth total ) by mg Tab daily. mouth daily. thyroid, No 60MG Take 1 Take 1 porcine 6-19 tablet (60 tablet (ARMOUR 00:00: mg total) (60 mg THYROID) 60 00 by mouth total ) by mg Tab daily. mouth daily. rizatriptan No 10MG Take 10 mg Ta ke 10 (MAXALT) 10 8-24 by mouth mg by MG tablet 00:00: once as mouth 00 needed for once as migraine. needed for migraine. rizatriptan 10mg Take 10 mg Ta ke 10 (MAXALT) 10 8-24 05-13 by mouth mg by MG tablet 00:00: 00:00 once as mouth 00 :00 needed for once as migraine. needed for migraine. atorvastati No atorvastat n 10 mg in 10 mg tablet tablet levothyroxi No levothyrox ne 75 mcg ine 75 mcg tablet tablet meloxicam No meloxicam 7.5 mg 7.5 mg tablet tablet omeprazole No omeprazole 20 mg 20 mg capsule,del capsule,de ayed layed release release oxycodone-a No oxycodone- cetaminophe acetaminop n 5 mg-325 hen 5 mg tablet mg-325 mg tablet Problems Condition Condition Condition Status Onset Resolution Last Treatin g Comments Name Details Category Date Date Treatment Clinician Date Contusion Contusion Problem Active of knee of Knee 04-19 00:00: 00 Sprain of Sprain of Problem Active left ankle Left Ankle 04-19 00:00: 00 Contusion Contusion Problem Active of right of Right 04-19 hand Hand 00:00: 00 Essential Essential [id number] Active 2016-10-11 hypertensio hypertensio 05-13 11:15:52 n n 00:00: 00 Menopausal Menopausal [id number] Active 2016-05-13 syndrome syndrome 05-13 15:27:57 (hot (hot 00:00: flashes) flashes) 00 Migraine Migraine [id number] Active 2016-05-13 without without 05-13 15:28:00 status status 00:00: migrainosus migrainosus 00 , not , not intractable intractable Routine Routine Problem Inactiv 2015-11-22 general general e 11-21 10:48:47 medical medical 00:00: examination examination 00 [facility] [place] Fragoso [id number] Active 2014-082015-08-1510-16 17:31:19 00:00: 00 Vitamin D Vitamin D [id number] Active 2014-09-14 Overview: deficiency deficiency 11-25 15:13:48 C hronic 00:00: [Vitamin 00 D Deficien c y] Hypothyroid Hypothyroid [id number] Active 2015-07-14 Overview: ism ism 11-24 16:52:55 Chronic 00:00: [Hypothy r 00 oidism] Palpitation Palpitation [id number] Active 2015-07-14 Overview: s s 04-16 16:53:00 Acute 00:00: [Palpita t 00 ions (Symptom ) ] Chronic Chronic [id number] Active 2014-09-14 Over view: pancreatiti pancreatiti 05-21 15:13:33 Chronic s s 00:00: [Chronic 00 Pancreat i tis] Esophageal Esophageal [id number] Active 2015-07-14 Overview: reflux reflux 05-14 16:52:49 Past Me d 00:00: Hx;Chron i 00 c [History of Esophage a l Reflux ] Chronic Chronic [id number] Active 2014-09-14 Over view: lymphocytic lymphocytic 05-14 15:13:35 Past Med thyroiditis thyroiditis 00:00: Hx;Chroni 00 c [History of Hashimot o 's Thyroidi t is] Sleep apnea Sleep apnea [id number] Active 2015-07-14 Overview: 05-14 16:52:53 Past Me d 00:00: Hx;Chron i 00 c [History of Sleep Apnea] Routine Routine [id number] Resolve 2016-05-13 general general d 11-21 00:00:00 medical medical 00:00: examination examination 00 at [facility] facility Acute chest Acute chest [id number] Resolve 2014-082016-05-13 2015-07-14 pain pain d 1-20 00:00:00 16:53:03 00:00: 00 Breast Breast [id number] Resolve 2016-05-13 2014-11-29 pain, pain, d 11-29 00:00:00 09:55:45 bilateral bilateral 00:00: 00 Hypertrophi Hypertrophi [id number] Resolve 2016-05-13 2014-09-14 Overview: c and c and d 05-11 00:00:00 15:13:45 Chroni c atrophic atrophic 00:00: [Acroc hor condition condition 00 don] of skin of skin Unknown Unknown [id number] Resolve 2015-11-22 cause of cause of d 05-14 00:00:00 morbidity morbidity 00:00: or or 00 mortality mortality Family Family [id number] Resolve 2014-11-29 history of history of d 05-12 00:00:00 malignant malignant 00:00: neoplasm of neoplasm of 00 breast breast Family Family [id number] Resolve 2014-11-29 history of history of d 05-12 00:00:00 cardiovascu cardiovascu 00:00: lar disease lar disease 00 Family Family [id number] Resolve 2014-11-29 history of history of d 05-14 00:00:00 diabetes diabetes 00:00: mellitus mellitus 00 Procedures Procedure Date / Time Performed Performing Clinician Devisofia e XR, hand 2020-05-03 00:00:00 XR, ankle 2020-04-19 00:00:00 XR, hand 2020-04-19 00:00:00 XR, knee 2020-04-19 00:00:00 Colonoscopy 2018-08-25 00:00:00 MAMMO DIGITAL SCREENING W MAT 2016-09-16 21:09:23 Dionte Romo BILATERAL W CAD US THYROID 2016-05-13 18:03:09 Rafi Cardenas Appendectomy 2004-08-25 00:00:00 Cholecystectomy 2004-08-25 00:00:00 Other Results Test Description Test Time Test Comments Text Results Atomic Results Result Comments CT Abdomen Pelvis with oral 2016-12-26 00:59:25 CT Abdomen Pelvis with oral and and IV Contrast IV Contrast (12/26/2016 1 2:59 AM) Narrative INDICATION: Epigas tric pain with nausea and vomiting. TECHNIQUE: Spi ral CT performed from the dome o f the diaphragm to the pubic symph ysis following intravenous and or al contrast. 125 mL of Omnipaqu e 300 used. Coronal and sagittal reformatted images were obta ined. Dose reduction technique usi ng automated exposure control o f mA and/or KV according to patie nt size was utilized for this e xam ABDOMEN FINDINGS: Lung bases clear and no pleural effusio ns. Small hiatal hernia. Gallbla dder absent. Liver, spleen, pancr eas, and kidneys normal. No caliectasis or small bowel obstruction. Nondilated abdo isis aorta and no ascites. PE LVIC FINDINGS: Appendix surgicall y absent. Uterus not enlarged. No mass or fluid collection and no localized inflammatory dowd es in the pelvis. Normal lower tho racic and lumbar vertebra without compression deformity. IMPRESSION: Normal CT of the abdomen and pelvis except fo r small hiatal hernia. Signed (Electronic Signature): 2016 1:11 AM Signed By: Richard Beckford MD Procedure Note Interface, Rad Results In - Raeann December 26, 2016 1:13 AM EDT INDICATION: Epigastric pain with nausea and vomiting. TECHNIQ UE: Spiral CT performed from the dome of the diaphragm to the pubi c symphysis following intraven ous and oral contrast. 125 mL of Omnipaque 300 used. Coronal and sagittal reformatted images were obtained. Dose reduction technique using automated exposure control of mA and/o r KV according to patient size wa s utilized for this exam ABDOM EN FINDINGS: Lung bases clear a nd no pleural effusions. Small hia soha hernia. Gallbladder absent. Liver, spleen, pancreas, and kidneys normal. No caliectas is or small bowel obstruction. Nondilated abdominal aorta a nd no ascites. PELVIC FINDINGS: Appendix surgically absent. Uterus not enlarged. No mass or fluid collection and no loca lized inflammatory changes in the pelvis. Normal lower thoraci c and lumbar vertebra without compression deformity. IMPRESSION: Normal CT of the abdomen and pelvis except fo r small hiatal hernia. Signed (Electronic Signature): 2016 1:11 AM Signed By: Richard Beckford MD Comprehensive Metabolic Panel 2016-12-25 22:47:00 Test Item Value Reference Range Comments Sodium (test code = Sodium) 138 mmol/L 134-145 mmol/L Potassium (test code = Potassium) 3.6 mmol/L 3.5-5.1 mmol/L Chloride (test code = Chloride) 100 mmol/L 98-107 mmol/L CO2 (test code = CO2) 30.0 mmol/L 21.0-32.0 mmol/L BUN (test code = BUN) 14 mg/dL 7-18 mg/dL Creatinine (test code = Creatinine) 1.01 mg/dL 0.55-1.02 mg /dL BUN/Creatinine Ratio (test code = BUN/Creatinine 14 Ratio) GFR MDRD Non Af Amer (test code = GFR MDRD Non Af 57 mL/min/1.73 m2 Amer) GFR MDRD Af Amer (test code = GFR MDRD Af Amer) >60 Anion Gap (test code = Anion Gap) 8 mmol/L 3-11 mmol/L Glucose (test code = Glucose) 104 mg/dL 65-99 mg/dL Calcium (test code = Calcium) 8.9 mg/dL 8.5-10.1 mg/dL Albumin (test code = Albumin) 4.1 g/dL 3.4-5.0 g/dL Total Protein (test code = Total Protein) 8.2 g/dL 6.4-8. 2 g/dL Total Bilirubin (test code = Total Bilirubin) 0.9 mg/dL 0. 2-1.0 mg/dL AST (test code = AST) 12 U/L 15-37 U/L ALT (test code = ALT) 28 U/L 13-56 U/L Alkaline Phosphatase (test code = Alkaline 121 U/L 45-11 7 U/L Phosphatase) Lipase [id number] 22:47:00 Test Item Value Reference Range Comments Lipase (test code = Lipase) 102 U/L 73-393 U/L CBC w/ [id number] 22:47:00 Test Item Value Reference Range Comments WBC (test code = WBC) 11.5 10*9/L 3.5-10.5 10*9/L RBC (test code = RBC) 4.34 10*12/L 3.90-5.03 10*12/L HGB (test code = HGB) 13.7 g/dL 12.0-15.5 g/dL HCT (test code = HCT) 39.6 % 35.0-44.0 % MCV (test code = MCV) 91.4 fL 82.0-98.0 fL MCH (test code = MCH) 31.5 pg 26.0-34.0 pg MCHC (test code = MCHC) 34.5 g/dL 30.0-36.0 g/dL RDW (test code = RDW) 13.8 % 12.0-15.0 % MPV (test code = MPV) 9.1 fL 7.0-10.0 fL Platelet (test code = Platelet) 270 10*9/L 150-450 10*9/L Neutrophils % (test code = Neutrophils %) 76.6 % Lymphocytes % (test code = Lymphocytes %) 16.2 % Monocytes % (test code = Monocytes %) 6.0 % Eosinophils % (test code = Eosinophils %) 1.0 % Basophils % (test code = Basophils %) 0.2 % Absolute Neutrophils (test code = Absolute 8.8 10*9/L 1.7-7 .7 10*9/L Neutrophils) Absolute Lymphocytes (test code = Absolute 1.9 10*9/L 0.7-4 .0 10*9/L Lymphocytes) Absolute Monocytes (test code = Absolute 0.7 10*9/L 0.1-1.0 10*9/L Monocytes) Absolute Eosinophils (test code = Absolute 0.1 10*9/L 0.0-0 .7 10*9/L Eosinophils) Absolute Basophils (test code = Absolute 0.0 10*9/L 0.0-0.1 10*9/L Basophils) CBC and [id number] 22:47:00CBC and differential (12/25/2016 10:47 PM) Specimen Blood Narrative The following orders were created for panel order CBC and differential. Procedure Abnormality Status --------- ------ CBC w/ Differential[[id number]] AbnormalFinal result Please view results for these tests on the individual orders.[id number] 20:38:00 Test Item Value Reference Range Comments Color, UA (test code = Color, UA) Yellow Clarity, UA (test code = Clarity, UA) Clear pH, UA (test code = pH, UA) 8.0 5.0-8.0 Leukocyte Esterase, UA (test code = Leukocyte Negative Ne gative Esterase, UA) Nitrite, UA (test code = Nitrite, UA) Negative Negative Protein, UA (test code = Protein, UA) Negative Negative Glucose, UA (test code = Glucose, UA) Negative Negative Bilirubin, UA (test code = Bilirubin, UA) Negative Negati ve RBC, UA (test code = RBC, UA) 1 /HPF 0-3 /HPF WBC, UA (test code = WBC, UA) <1 0-2 /HPF Squam Epithel, UA (test code = Squam Epithel, 0 /HPF 0- 5 /HPF UA) Bacteria, UA (test code = Bacteria, UA) None Seen None See n /HPF Specific [place], UA (test code = Specific 1.016 1.005 -1.030 [place], UA) WBC Clumps (test code = WBC Clumps) None Seen None Seen /H PF Hyphal Yeast (test code = Hyphal Yeast) None Seen None See n /HPF Ketones, UA (test code = Ketones, UA) Trace Negative Blood, UA (test code = Blood, UA) Negative Negative Yeast, UA (test code = Yeast, UA) None Seen None Seen /HPF Urine Collection Type (test code = Urine Urine, Voided Collection Type) Qualitative, Urine (Sent to lab)2016-12-25 20:38:00 Test Item Value Reference Range Comments Preg Test, Ur (test code = Preg Test, Ur) Negative Negati ve XR Abdomen 2 Or More [id number] 10:57:53XR Abdomen 2 Or More Views (12/25/2016 10:57 AM) Narrative POS(PC): 1 INDICATION: Abdominal pain, nausea, vomiting COMPARISON: None FINDINGS: Surgical clips are noted overlying the right upper quadrant. Scattered foci of gas and stool are identified within nondistended loops of large and small bowel, without evidence of obstruction. This includes a moderate volume of stool throughout the colon and rectum. There is no evidence of pneumoperitoneum. The visualized lung bases appear clear. A tiny probable phlebolith is noted in the left lower hemipelvis. No acute osseous abnormalities are identified. IMPRESSION: No evidence of obstruction or pneumoperitoneum. Moderate volume of stool throughout the colon/rectum. Signed (Electronic Signature): 12/25/2016 11:00 AM Signed By: Ron Galarza MD Procedure Note Interface, Rad Results In - FriDecember 25, 2016 11:02 AM EDT POS(PC): 1 INDICATION: Abdominal pain, nausea, vomiting COMPARISON: None FINDINGS: Surgical clips are noted overlying the right upper quadrant. Scattered foci of gas and stool are identified within nondistended loops of large and small bowel, without evidence of obstruction. This includes a moderate volume of stool throughout the colon and rectum. There is no evidence of pneumoperitoneum. The visualized lung bases appear clear. A tiny probable phlebolith is noted in the left lower hemipelvis. No acute osseous abnormalities are identified. IMPRESSION: No evidence of obstruction or pneumoperitoneum. Moderate volume of stool throughout the colon/rectum. Signed (Electronic Signature): 12/25/2016 11:00 AM Signed By: Ron Galraza [facility] Metabolic [id number] 10:39:00 Test Item Value Reference Range Comments Sodium (test code = Sodium) 134 mmol/L 134-145 mmol/L Potassium (test code = Potassium) 4.8 mmol/L 3.5-5.1 mmol/L Chloride (test code = Chloride) 101 mmol/L 98-107 mmol/L CO2 (test code = CO2) 27.0 mmol/L 21.0-32.0 mmol/L BUN (test code = BUN) 14 mg/dL 7-18 mg/dL Creatinine (test code = Creatinine) 0.98 mg/dL 0.55-1.02 mg /dL BUN/Creatinine Ratio (test code = 14 BUN/Creatinine Ratio) GFR MDRD Non Af Amer (test code = GFR MDRD 59 mL/min/1.73m2 Non Af Amer) GFR MDRD Af Amer (test code = GFR MDRD Af >60 Amer) Anion Gap (test code = Anion Gap) 6 mmol/L 3-11 mmol/L Glucose (test code = Glucose) 89 mg/dL 65-99 mg/dL Calcium (test code = Calcium) 9.1 mg/dL 8.5-10.1 mg/dL Albumin (test code = Albumin) 3.8 g/dL 3.4-5.0 g/dL Total Protein (test code = Total Protein) 8.2 g/dL 6.4-8. 2 g/dL Total Bilirubin (test code = Total 0.9 mg/dL 0.2-1.0 mg/dL Bilirubin) AST (test code = AST) 38 U/L 15-37 U/L ALT (test code = ALT) 29 U/L 13-56 U/L Alkaline Phosphatase (test code = Alkaline 121 U/L 45-11 7 U/L Phosphatase) Lipase [id number] 10:39:00 Test Item Value Reference Range Comments Lipase (test code = Lipase) 91 U/L 73-393 U/L CBC w/ [id number] 10:39:00 Test Item Value Reference Range Comments Results Verified by Slide Scan (test code = Slide Reviewed Results Verified by Slide Scan) WBC (test code = WBC) 11.9 10*9/L 3.5-10.5 10*9/L RBC (test code = RBC) 4.15 10*12/L 3.90-5.03 10*12/L HGB (test code = HGB) 13.2 g/dL 12.0-15.5 g/dL HCT (test code = HCT) 38.2 % 35.0-44.0 % MCV (test code = MCV) 92.2 fL 82.0-98.0 fL MCH (test code = MCH) 31.7 pg 26.0-34.0 pg MCHC (test code = MCHC) 34.4 g/dL 30.0-36.0 g/dL RDW (test code = RDW) 13.9 % 12.0-15.0 % MPV (test code = MPV) 9.6 fL 7.0-10.0 fL Platelet (test code = Platelet) 150-450 10*9/L Neutrophils % (test code = Neutrophils %) 73.5 % Lymphocytes % (test code = Lymphocytes %) 17.5 % Monocytes % (test code = Monocytes %) 6.2 % Eosinophils % (test code = Eosinophils %) 2.1 % Basophils % (test code = Basophils %) 0.7 % Absolute Neutrophils (test code = Absolute 8.8 10*9/L 1.7-7 .7 10*9/L Neutrophils) Absolute Lymphocytes (test code = Absolute 2.1 10*9/L 0.7-4 .0 10*9/L Lymphocytes) Absolute Monocytes (test code = Absolute 0.7 10*9/L 0.1-1.0 10*9/L Monocytes) Absolute Eosinophils (test code = Absolute 0.2 10*9/L 0.0-0 .7 10*9/L Eosinophils) Absolute Basophils (test code = Absolute 0.1 10*9/L 0.0-0.1 10*9/L Basophils) CBC w/ [id number] 10:39:00CBC w/ Differential (12/25/2016 10:39 AM) Specimen Blood Narrative The following orders were createdfor panel order CBC w/ Differential. Procedure Abnormality Status --------- ------ CBC w/ Differential[[id number]] AbnormalFinal result Please view results for these tests on the individual orders.#[id number] 07:54:49Mammo Digital Screening W Mat Bilateral W CAD (09/16/2016 4:09 PM EST)SpecimenNarrativePerformed AtPOS(PC):4 EXAMINATION: SCREENING TOMOSYNTHESIS WITHDIGITALMAMMOGRAPHY INDICATION: Routine Screening TECHNIQUE: Routine 2D and 3D views performed COMPARISON: 09/11/2015, 09/08/2014 FINDINGS: BREAST DENSITY: 2 - There are scattered areas of fibroglandular density. There are no suspicious masses, microcalcifications, or areas of architectural distortion. There are no secondary findings of malignancy. IMPRESSION: No evidence of malignancy. Routine screening is recommended. -Full digital 3D and 2D digital mammography performed.-The exam was evaluated with computer aided detection toincrease the sensitivity.-The patient has been entered into a reminder system with a target due datefor the next mammogram.-The patient will be sent a letter concerning the results of this exam. BI-RADS Category: 1- [id number] : Negative. Mammogram in 1 year. Recommendation Laterality: Both Signed (Electronic Signature): 09/17/2016 8:19 AM Signed By: COLEEN Grant RADProcedure NoteInterface, Rad Results In - 09/17/2016 8:58 AM ESTPOS(PC):4 EXAMINATION: SCREENING TOMOSYNTHESIS WITH DIGITAL MAMMOGRAPHY INDICATION: Routine Screening TECHNIQUE: Routine 2D and 3D views performed COMPARISON: 09/11/2015, 09/08/2014 FINDINGS: BREAST DENSITY: 2 - There are scattered areas of fibroglandular density. Thereare no suspicious masses, microcalcifications, or areas of architectural distortion. There are no secondary findings of malignancy. IMPRESSION: No evidence of malignancy. Routine screening is recommended. -Full digital 3D and 2D digital mammography performed. -The exam was evaluated with computer aided detection to increase the sensitivity. -The patient has been entered into a reminder system with a target due date for the next mammogram. -The patient will be sent a letter concerning the results of t his exam. BI-RADS Category: 1-[id number] : Negative. Mammogram in 1 year. Recommendation Laterality: Both Signed (Electronic Signature): 09/17/2016 8:19 AM Signed By: PRATIBHA Granterforming Organizati onAddressCity/State/ZipcodePhone [facility] [id number] [place] [address] #[id number] 14:18:00[place] Thyroid (05/13/2016 2:03 PM EDT)SpecimenNarrativePerformed AtPOS(PC): 3 INDICATION: Nontoxic multinodular goiter. Hypothyroidism TECHNIQUE: Real-time regalado scale imaging performed of the thyroid gland. COMPARISON: None FINDINGS: The right thyroid lobe measures 3.9 x 1.0 x 1.1 cm. No discrete thyroid nodules are identified. The left thyroid lobe measures 4.1 x 1.1 x 1.7 cm. No discrete nodules are identified. The thyroid isthmus is normal. The thyroid gland is somewhat heterogeneous in echotexture IMPRESSION: Heterogeneous thyroid gland without focal nodule identified Signed (Electronic Signature): 05/13/2016 2:18 PM Signed By: Denise Gordon MDOKLAHOMA STATE [facility] [place] RADProcedure NoteInterface, Rad Results In - 05/13/2016 2:21 PM EDTPOS(PC): 3 INDICATION: Nontoxic multinodular goiter. Hypothyroidism TECHNIQUE: Real-time regalado scale imaging performed of the thyroid gland. COMPARISON: None FINDINGS: The right thyroid lobe measures 3.9 x 1.0 x 1.1 cm. No discrete thyroid nodules are identified. The left thyroid lobe measures 4.1 x 1.1 x 1.7 cm. No discrete nodules are identified. The thyroid isthmus is nor mal. The thyroid gland is somewhat heterogeneous in echotexture IMPRESSION: Heterogeneous thyroid gland without focal nodule identified Signed (Electronic Signature): 05/13/2016 2:18 PM Signed By: PRATBIHA Antunezerforming OrganizationAddressCity/State/ZipcodePhone NumberOKLAHOMA [facility] [id number] [facility].[place], [place] [address] Rapid Group A Strep Antigen (Sent to Lab)2016-02-02 16:56:00 Test Item Value Reference Range Comments Rapid Strep A Screen (test code = Rapid Strep A Negative Negative Screen) Assessments Condition Name Status Diagnosis Date Treating Clinici an Sprain of left ankle Active 2020-05-17 09:15:44 Contusion of right hand Active 2020-05-17 09:15:44 Sprain of left ankle Active 2020-05-03 09:53:10 Contusion of right hand Active 2020-05-03 09:53:10 Hand pain Active 2020-05-03 08:57:46 Ankle pain Active 2020-05-03 09:19:52 Pain of left ankle joint Active 2020-04-19 09:04:03 Pain in right hand Active 2020-04-19 09:04:41 Knee pain Active 2020-04-19 09:05:22 Sprain of left ankle Active 2020-04-19 14:25:24 Contusion of knee Active 2020-04-19 14:36:18 Contusion of right hand Active 2020-04-19 14:36:24 Encounters Start End Encounter Admission Attending Care Care Encounter ID Date/Time Date/Time Type Type Clinicians Facility Department 2020-05-17 2020-05-17 Margarito Crenshaw [facility] 9 [id number] 00:00:00 00:00:00 ramesh Diego P.Fortino. , P.A. 0923 MD: [address] [address], Ph. 2020-05-03 2020-05-03 Margarito StephensonOrt [facility] 9 [id number] 00:00:00 00:00:00 ramesh Diego P.A. , P.A. 0909 MD: [address] [address], Ph. 2020-04-19 2020-04-19 Margarito StephensonOrt [facility] 9 [id number] 00:00:00 00:00:00 ramesh Diego P.A. , P.AJeremiah 0826 MD: [address] [place] [address], [facility] [place] [address], Ph. 2018-02-19 2018-02-19 [facility] [id number] 00:00:00 00:00:00 2018-02-18 2018-02-18 [facility] [id number] 00:00:00 00:00:00 2017-04-30 2017-04-30 Outpatient [facility] [id number] 08:17:54 08:52:34 [id number] 2017-04-30 2017-04-30 Outpatient [facility] [id number] 00:00:00 00:00:00 [id number] 2017-01-23 2017-01-23 Outpatient [facility] [id number] 07:37:51 23:59:00 [id number] 2017-01-23 2017-01-23 Outpatient [facility] [id number] 00:00:00 00:00:00 [id number] 2016-12-26 2016-12-26 Emergency EL [facility] [id number] 00:47:08 23:59:00 [id number] 2016-12-26 2016-12-26 Outpatient EL [facility] [id number] 15:20:50 16:08:19 [id number] 2016-12-25 2016-12-26 Emergency ER BESSIE, [facility] [id number] 21:47:14 02:22:00 JOJO [id number] 2016-12-25 2016-12-26 [facility] [id number] 21:47:14 02:22:00 2016-12-26 2016-12-26 Outpatient [facility] [id number] 00:00:00 00:00:00 [id number] 2016-12-25 2016-12-25 Emergency EL [facility] [id number] 10:46:16 23:59:00 [id number] 2016-12-25 2016-12-25 Emergency EL [facility] [id number] 10:46:16 23:59:00 [id number] 2016-12-25 2016-12-25 Emergency [facility] [id number] 22:48:09 22:48:09 [id number] 2016-12-25 2016-12-25 Emergency ER [facility] [id number] 20:05:00 20:05:00 [id number] 2016-12-25 2016-12-25 [facility] [id number] 18:54:47 19:30:00 2016-12-25 2016-12-25 Emergency ER MATUTE, [facility] [id number] 10:11:09 12:00:00 ENRRIQUE [id number] 2016-12-25 2016-12-25 Emergency ER MATUTE, [facility] [id number] 10:11:09 12:00:00 ENRRIQUE [id number] 2016-12-25 2016-12-25 [facility]patient [facility] [id number] 10:11:09 12:00:00 2016-12-25 2016-12-25 Emergency ER [facility] [id number] 09:56:00 09:56:00 [id number] 2016-12-25 2016-12-25 Outpatient [facility] [id number] 00:00:00 00:00:00 [id number] 2016-12-25 2016-12-25 Emergency [facility] [id number] 00:00:00 00:00:00 [id number] 2016-10-11 2016-10-11 Outpatient [facility] [id number] 11:32:27 23:59:00 [id number] 2016-10-11 2016-10-11 Outpatient [facility] [id number] 11:30:01 23:59:00 [id number] 2016-10-11 2016-10-11 Outpatient [facility] [id number] 10:33:07 11:25:01 [id number] 2016-10-11 2016-10-11 Outpatient [facility] [id number] 00:00:00 00:00:00 [id number] 2016-09-25 2016-09-25 Outpatient [facility] [id number] 17:30:00 17:30:06 [id number] 2016-09-25 2016-09-25 Outpatient [facility] [id number] 00:00:00 00:00:00 [id number] 2016-09-16 2016-09-16 [facility] [id number] 15:50:00 23:59:00 2016-09-16 2016-09-16 Outpatient EL NANCY DIONTE [facility] [id number] 15:51:16 15:51:16 [id number] 2016-09-16 2016-09-16 Outpatient [facility] [id number] 00:00:00 00:00:00 [id number] 2016-07-25 2016-07-25 Outpatient [facility] [id number] 10:39:20 23:59:00 [id number] 2016-07-25 2016-07-25 Outpatient [facility] [id number] 00:00:00 00:00:00 [id number] 2016-07-17 2016-07-17 Outpatient [facility] [id number] 00:00:00 00:00:00 [id number] 2016-07-10 2016-07-10 Outpatient [facility] [id number] 00:00:00 23:59:00 [id number] 2016-07-08 2016-07-08 Outpatient [facility] [id number] 00:00:00 23:59:00 [id number] 2016-07-08 2016-07-08 Outpatient [facility] [id number] 00:00:00 00:00:00 [id number] 2016-07-03 2016-07-03 Outpatient EL NEGRETE, [facility] [id number] 16:37:17 16:37:28 CHANCE [id number] 2016-07-03 2016-07-03 Outpatient [facility] [id number] 00:00:00 00:00:00 [id number] 2016-06-13 2016-06-13 Outpatient [facility] [id number] 00:00:00 00:00:00 [id number] 2016-06-13 2016-06-13 Outpatient [facility] [id number] 00:00:00 00:00:00 [id number] 2016-06-12 2016-06-12 Outpatient [facility]CI[facility] [id number] 13:44:34 14:16:42 CHANCE [id number] 2016-06-12 2016-06-12 Outpatient [facility] [id number] 00:00:00 00:00:00 CHANCE [id number] 2016-06-07 2016-06-07 Outpatient DANIELITO NEGRETE [facility] [id number] 09:15:51 09:45:11 CHANCE [id number] 2016-06-07 2016-06-07 Outpatient [facility] [id number] 00:00:00 00:00:00 [id number] 2016-05-13 2016-05-13 Outpatient [facility] [id number] 13:45:00 23:59:00 2016-05-13 2016-05-13 Outpatient [facility] [id number] 14:09:17 15:20:07 CHANCE [id number] 2016-05-13 2016-05-13 Outpatient EL EVAN CARDENAST [facility] [id number] 13:50:47 13:50:47 [id number] 2016-05-13 2016-05-13 Outpatient [facility] [id number] 00:00:00 00:00:00 CHANCE [id number] 2016-05-01 2016-05-01 Outpatient DANIELITO STONEDANIELITO RAFI [facility] [id number] 12:34:59 23:59:00 [id number] 2016-05-01 2016-05-01 Outpatient [facility] [id number] 00:00:00 00:00:00 [id number] 2016-05-01 2016-05-01 Outpatient [facility] [id number] 00:00:00 00:00:00 [id number] 2016-04-12 2016-04-12 Outpatient [facility] [id number] 00:00:00 23:59:00 [id number] 2016-03-25 2016-03-25 Outpatient [facility] [id number] 00:00:00 23:59:00 [id number] 2016-03-13 2016-03-13 Outpatient [facility] [id number] 00:00:00 23:59:00 [id number] 2016-02-02 2016-02-02 [facility] [id number] 16:56:10 17:26:00 2015-12-08 2015-12-08 R EL [facility] [id number] 00:00:00 00:00:00 [id number] 2015-11-22 2015-11-22 Outpatient EL NIKOLE KUMAR [facility] [id number] 10:29:36 11:05:51 [id number] 2015-11-21 2015-11-21 R DANIELITO SINCLAIR JAM [facility] [id number] 08:35:33 15:25:01 CHEY [id number] 2015-11-21 2015-11-21 R EL [facility] [id number] 00:00:00 00:00:00 [id number] 2015-11-16 2015-11-16 R DANIELITO THIBODEAUX [facility] [id number] 08:37:15 13:37:39 DANIEL [id number] 2015-11-08 2015-11-08 R DANIELITO SINCLAIR JAM [facility] [id number] 08:35:09 10:38:07 CHEY [id number] 2015-10-27 2015-10-27 R DANIELITO SINCLAIR [facility] [id number] 07:48:24 08:49:55 CHEY [id number] 2015-10-20 2015-10-20 R DANIELITO THIBODEAUX J[facility] [id number] 08:31:29 23:59:00 DANIEL [id number] 2015-10-18 2015-10-18 R ANSLEY [facility]SMALVIN [facility] [id number] 08:04:06 08:44:49 DANIEL [id number] 2015-10-13 2015-10-13 R EL [facility] [id number] 00:00:00 00:00:00 [id number] 2015-10-11 2015-10-11 R JAM ADAMS [facility] [id number] 08:05:47 09:28:50 DANIEL [id number] 2015-10-06 2015-10-06 R EL [facility] [id number] 00:00:00 00:00:00 [id number] 2015-10-04 2015-10-04 R JAM ADAMS [facility] [id number] 08:09:09 09:06:55 DANIEL [id number] 2015-09-29 2015-09-29 R DANIELITO NOLANSJAM [facility] [id number] 08:41:11 10:19:45 DANIEL [id number] 2015-09-26 2015-09-26 R EL JAM [facility] [id number] 00:00:00 00:00:00 [id number] Immunizations Ordered Immunization Filled Immunization Date Status Commen ts Refusal Reason Name Name Influenza, (QUAD) 2016-05-13 Completed Intradermal PF 00:00:00 (18-64yrs) Influenza Virus 2015-07-09 Completed Vaccine, unspecified 00:00:00 formulation INFLUENZA TIV (TRI) 2011-08-25 Completed PF (IM) 00:00:00 TdaP 2010-05-02 Completed 00:00:00 Payers Payer Name Policy Type Policy Number Effective Date Expiration D ate [id number] 2014 00:00:00 Plan of Treatment Planned Activity Planned Date Details Comments Future Scheduled Test [code = ] Future Scheduled Test [code = ] Future Scheduled Test [code = ] Future Scheduled Test [code = ] Future Scheduled Test [code = ] Future Scheduled Test [code = ] Future Scheduled Test [code = ] Future Scheduled Test [code = ] Future Scheduled Test [code = ] Future Scheduled Test [code = ] Future Scheduled Test [code = ] Future Scheduled Test [code = ] Future Scheduled Test [code = ] Future Scheduled Test [code = ] Social History Social Habit Start Date Stop Date Comments Alcohol intake ASSERTION 2016-12-25 00:00:00 2016-12-25 00:00:00 Alcohol Comment 2016-06-12 00:00:00 2016-06-12 00:00:00 Tobacco smoking status NHIS 2016-05-13 00:00:00 2016-05-13 00:00 :00 Smoking Status Start Date Stop Date Unknown If Ever Smoked Vital Signs Vital Name Observation Time Observation Value Comments SYSTOLIC BLOOD PRESSURE 2016-12-25 22:39:00 142 mm[Hg] DIASTOLIC BLOOD PRESSURE 2016-12-25 22:39:00 85 mm[Hg] RESPIRATORY RATE 2016-12-25 22:39:00 18 /min OXYGEN SATURATION 2016-12-25 22:39:00 98 % HEART RATE 2016-12-25 20:17:00 85 /min BODY TEMPERATURE 2016-12-25 20:17:00 36.72 Manju HEIGHT 2016-12-25 20:17:00 165.1 cm WEIGHT 2016-12-25 20:17:00 83.5 kg SYSTOLIC BLOOD PRESSURE 2016-12-25 19:02:00 174 mm[Hg] DIASTOLIC BLOOD PRESSURE 2016-12-25 19:02:00 90 mm[Hg] HEART RATE 2016-12-25 19:02:00 91 /min BODY TEMPERATURE 2016-12-25 19:02:00 36.67 Manju RESPIRATORY RATE 2016-12-25 19:02:00 22 /min HEIGHT 2016-12-25 19:02:00 165.1 cm WEIGHT 2016-12-25 19:02:00 83.507 kg OXYGEN SATURATION 2016-12-25 19:02:00 98 % SYSTOLIC BLOOD PRESSURE 2016-12-25 11:58:00 145 mm[Hg] DIASTOLIC BLOOD PRESSURE 2016-12-25 11:58:00 99 mm[Hg] HEART RATE 2016-12-25 11:58:00 85 /min RESPIRATORY RATE 2016-12-25 11:58:00 18 /min OXYGEN SATURATION 2016-12-25 11:58:00 98 % BODY TEMPERATURE 2016-12-25 10:02:00 36.72 Manju HEIGHT 2016-12-25 10:02:00 165.1 cm WEIGHT 2016-12-25 10:02:00 84.8 kg SYSTOLIC BLOOD PRESSURE 2016-02-02 17:26:00 132 mm[Hg] DIASTOLIC BLOOD PRESSURE 2016-02-02 17:26:00 80 mm[Hg] HEART RATE 2016-02-02 16:54:00 76 /min BODY TEMPERATURE 2016-02-02 16:54:00 37.11 Manju RESPIRATORY RATE 2016-02-02 16:54:00 18 /min HEIGHT 2016-02-02 16:54:00 165.1 cm WEIGHT 2016-02-02 16:54:00 85.412 kg OXYGEN SATURATION 2016-02-02 16:54:00 95 % Hospital Discharge Instructions 1. Sprain of left ankle lace up ankle brace 2. Contusion of knee bruises: care instructions 3. Contusion of right hand 4. Pain of left ankle joint XR, ankle 5. Pain in right hand XR, hand 6. Knee pain XR, knee knee pain or injury: care instructions Discussion Note: None recorded.
[2020-09-14 09:08] LABS: ALBUMIN 4.1 g/dL (3.5-5.0); ALKALINE PHOSPHATASE 109 U/L (38-126); ASPARTATE AMINO TRANSFERASE 24 U/L (14-36); BILIRUBIN,DIRECT 0.2 mg/dL (0.0-0.4); BILIRUBIN,TOTAL 0.7 mg/dL (0.2-1.3); TOTAL PROTEIN 7.2 g/dL (6.3-8.2)
== END ==
LOC: OD 07:22
PROVIDERS: ATTEND Family Medicine
DX: R17 Unspecified jaundice (principal)
CPT/HCPCS: 36415; 80076